=== PATIENT | male | born 1970 | race Caucasian/White ===

== ENCOUNTER 2016-07-25 07:16 | Emergency (ER) | payer OTHER ==
--- NOTE | 2016-07-25 09:07 | DIAGNOSTIC IMAGING REPORT ---
PROCEDURE: XR CHEST 1 VIEW INDICATION: SHORTNESS OF BREATH TECHNIQUE: Portable AP view 08:11 a.m. COMPARISON: None. FINDINGS: Lungs are clear. Cardiac leads project over the chest. Heart and mediastinum are normal. Thorax is normal. IMPRESSION: 1. Negative chest.
--- NOTE | 2016-07-25 11:19 | ED NURSING NOTES ---
Clinical Report - Nurses [facility] [address] [place] [address] 07/25/2016 7:18 Patient: SHAKIRA RIVERA TRIAGE Triage time 07:23. Acuity: LEVEL 3. Chief Complaint: COUGH and WHEEZING (SOB). Alert. No acute distress. SEPSIS SCREEN: Sepsis Screen. Negative (no infection suspected/documented). NENITA COMA SCORE: Nenita Coma Scale: 15- eyes open spontaneously (4); best verbal response- oriented x 4 (5); best motor response- obeys commands (6). --07:30 Candace Banerjee R.N. 07:24 07/25/16. BP: 140/89. HR: 104. RR: 22. O2 saturation: 88%. Temp: 97.6 F. Pain level now: 08/24. --07:30 Candace Banerjee R.N. Weight: 72.5 kg stated. Height/Length: 66 inches Per Patient. BMI: 25.8. --07:25 Candace Banerjee R.N. Medications Blood Pressure Pill. --07:27 Candace Banerjee R.N. Albuterol Sulfate Inhalation. --07:28 Candace Banerjee R.N. Allergies NKDA. --07:27 Candace Banerjee R.N. History Arrived by EMS. Historian: patient. Unaccompanied. Primary physician (Nilda). Onset. (on and off since April. Was instructed to see PCP for SOB but has not been able to be seen yet.). Treatment CHUTE MAN: (see EMS report). Pulse oximeter applied (95). Pre-hospital 12-lead EKG. End-tidal CO2 monitor applied (44). ( Medications given CHUTE MAN: Solu-med. 125mg IVP, Mag 2g IVPB, Ativan 0.5mg IVP.). PAST MEDICAL HX: Immunizations: up-to-date. SOCIAL HX: Smoker- current status unknown. Regular alcohol use; consumes three liquor. No drug use. ABUSE ASSESSMENT: Abuse assessment: The patient was asked "Do you feel safe in your home?" and "Has anyone hurt you or threatened to hurt you?". No report of abuse. SELF HARM ASSESSMENT: A self harm assessment was performed. The patient answered "no" to the question "Do you have thoughts of harming or killing yourself?" and "Have you recently had thoughts about harming or killing others?". NUTRITIONAL RISK ASSESSMENT: The nutritional risk assessment revealed no deficiencies. FUNCTIONAL ASSESSMENT: Functional assessment: no impairments noted. LEARNING NEEDS ASSESSMENT: The learning needs assessment revealed no barriers. --07:30 Candace Banerjee R.N. Treatment CHUTE MAN: (Neb. treatment.). --07:32 Candace Banerjee R.N. PROBLEMS: Hypertension. Cancer. Migraine Headache. --07:28 Candace Banerjee R.N. ADDITIONAL SURGERIES: Hernia Repair. Testicular surgery . --07:28 Candace Banerjee R.N. Interventions ID band on patient. Transported via stretcher. --07:30 Candace Banerjee R.N. 07:30 07/25/2016 Site #1 started prior to arrival by EMS via IV in the left antecubital space with an 18g angiocath, with aseptic technique and good blood return; one attempt. Saline lock flushed with 10 mL saline. --07:30 Candace Banerjee R.N. PHYSICAL ASSESSMENT To room via stretcher. GENERAL / NEURO / PSYCH: Alert. Appears in no acute distress. HEENT: Mucous membranes are pink. RESPIRATORY: Respirations not labored. Cough. CVS: Capillary refill less than 2 seconds. SKIN: Skin is warm and dry. --07:31 Candace Banerjee R.N. NURSING PROGRESS NOTES Patient gowned. Head of bed elevated. Two patient identifiers checked. Call light placed in reach. Side rails up x 2. Bed placed in lowest position. Brakes of bed on. Patient ready for evaluation- chart flagged. --07:31 Candace Banerjee R.N. ( RT notified for eval/treatment.). --07:31 Candace Banerjee R.N. Patient ID band checked for patient name, birthdate and medical record number: patient confirmed. Blood samples drawn from the peripheral IV site by nurse per protocol ; labeled in presence of the patient and sent to lab: rainbow set. Initial blood discarded and additional blood sent to lab. Line flushed with 10 mL normal saline post blood draw. --07:34 Candace Banerjee R.N. 07:45 07/25/2016 Albuterol Neb TX Nebulizer 3 unit dose given. Given by the respiratory therapist. Allergies verified and confirmed 5 rights. Loki Stone --07:55 Loki Stone 08:00 07/25/2016 Albuterol Neb TX Response: no adverse reaction pain is improving. The patient feels better. --08:40 Candace Banerjee R.N. 08:29 07/25/2016 Levofloxacin PO 500 mg given. Allergies verified and confirmed 5 rights. --08:29 Lisandra Bain R.N. 08:30 07/25/2016 Started bag #1 1000 mL IV Fluids IV NS (Saline); at 999 mL/hr over 1 hour(s) via site #1 via IV pump. Allergies verified and confirmed 5 rights. IV patency established. IV site checked: no pain, redness, or swelling. IV flushed thoroughly pre- and post-medication administration. --08:30 Lisandra Bain R.N. 09:22 07/25/2016 Duoneb (Ipratropium-Albuterol) Neb TX 1 unit dose given. Given by the respiratory therapist. Allergies verified and confirmed 5 rights. --09:22 Candace Banerjee R.N. 09:30 07/25/2016 Duoneb Neb TX Response: no adverse reaction pain is improving. The patient feels better. --09:30 Candace Banerjee R.N. 09:31 07/25/2016 IV Fluids IV NS Discontinued: bag #1 infused. Total amount infused: 1000 mL. IV patency established. IV site checked: no pain, redness, or swelling. IV flushed thoroughly. --09:31 Candace Banerjee R.N. 09:35 07/25/16. BP: 108/93. HR: 83. RR: 18. O2 saturation: 97%. --09:36 Candace Banerjee R.N. 11:20 07/25/2016 Site #1 removed upon discharge. Catheter intact. Manual pressure and bandage applied. --15:50 Lisandra Bain R.N. DISPOSITION / DISCHARGE Departure time: 11:20 Jul 25 2016. Condition at departure: improved and stable. No learning barriers present. Discharge instructions provided and reviewed with the patient. Reviewed medication(s) side effects, precautions, dosing and course information. Prescription(s) given to the patient. Patient verbalized understanding. Written instructions provided in Faroese. The patient was discharged by the physician. He was discharged home and accompanied by distribution a class lineman. He left the Emergency Department ambulatory and via private vehicle. Choir Member driving. --15:50 Lisandra Bain R.N. 15:49 07/25/16. BP: deferred. Additional comments: Pt refused saying he needed to go because his ride was waiting. . --15:50 Lisandra Bain R.N. Locked/Released at 07/25/2016 15:51 by Lisandra Bain R.N.
--- NOTE | 2016-07-25 11:19 | ED NURSING NOTES ---
Clinical Report - Nurses [facility] [address] [place] [address] 07/25/2016 7:18 Patient: SHAKIRA RIVERA TRIAGE Triage time 07:23. Acuity: LEVEL 3. Chief Complaint: COUGH and WHEEZING (SOB). Alert. No acute distress. SEPSIS SCREEN: Sepsis Screen. Negative (no infection suspected/documented). NENITA COMA SCORE: Nenita Coma Scale: 15- eyes open spontaneously (4); best verbal response- oriented x 4 (5); best motor response- obeys commands (6). --07:30 Candace Banerjee R.N. 07:24 07/25/16. BP: 140/89. HR: 104. RR: 22. O2 saturation: 88%. Temp: 97.6 F. Pain level now: 08/24. --07:30 Candace Banerjee R.N. Weight: 72.5 kg stated. Height/Length: 66 inches Per Patient. BMI: 25.8. --07:25 Candace Banerjee R.N. Medications Blood Pressure Pill. --07:27 Candace Banerjee R.N. Albuterol Sulfate Inhalation. --07:28 Candace Banerjee R.N. Allergies NKDA. --07:27 Candace Banerjee R.N. History Arrived by EMS. Historian: patient. Unaccompanied. Primary physician (Nilda). Onset. (on and off since April. Was instructed to see PCP for SOB but has not been able to be seen yet.). Treatment RECREATION DIRECTOR: (see EMS report). Pulse oximeter applied (95). Pre-hospital 12-lead EKG. End-tidal CO2 monitor applied (44). ( Medications given RECREATION DIRECTOR: Solu-med. 125mg IVP, Mag 2g IVPB, Ativan 0.5mg IVP.). PAST MEDICAL HX: Immunizations: up-to-date. SOCIAL HX: Smoker- current status unknown. Regular alcohol use; consumes three liquor. No drug use. ABUSE ASSESSMENT: Abuse assessment: The patient was asked "Do you feel safe in your home?" and "Has anyone hurt you or threatened to hurt you?". No report of abuse. SELF HARM ASSESSMENT: A self harm assessment was performed. The patient answered "no" to the question "Do you have thoughts of harming or killing yourself?" and "Have you recently had thoughts about harming or killing others?". NUTRITIONAL RISK ASSESSMENT: The nutritional risk assessment revealed no deficiencies. FUNCTIONAL ASSESSMENT: Functional assessment: no impairments noted. LEARNING NEEDS ASSESSMENT: The learning needs assessment revealed no barriers. --07:30 Candace Banerjee R.N. Treatment RECREATION DIRECTOR: (Neb. treatment.). --07:32 Candace Banerjee R.N. PROBLEMS: Hypertension. Cancer. Migraine Headache. --07:28 Candace Banerjee R.N. ADDITIONAL SURGERIES: Hernia Repair. Testicular surgery . --07:28 Candace Banerjee R.N. Interventions ID band on patient. Transported via stretcher. --07:30 Candace Banerjee R.N. 07:30 07/25/2016 Site #1 started prior to arrival by EMS via IV in the left antecubital space with an 18g angiocath, with aseptic technique and good blood return; one attempt. Saline lock flushed with 10 mL saline. --07:30 Candace Banerjee R.N. PHYSICAL ASSESSMENT To room via stretcher. GENERAL / NEURO / PSYCH: Alert. Appears in no acute distress. HEENT: Mucous membranes are pink. RESPIRATORY: Respirations not labored. Cough. CVS: Capillary refill less than 2 seconds. SKIN: Skin is warm and dry. --07:31 Candace Banerjee R.N. NURSING PROGRESS NOTES Patient gowned. Head of bed elevated. Two patient identifiers checked. Call light placed in reach. Side rails up x 2. Bed placed in lowest position. Brakes of bed on. Patient ready for evaluation- chart flagged. --07:31 Candace Banerjee R.N. ( RT notified for eval/treatment.). --07:31 Candace Banerjee R.N. Patient ID band checked for patient name, birthdate and medical record number: patient confirmed. Blood samples drawn from the peripheral IV site by nurse per protocol ; labeled in presence of the patient and sent to lab: rainbow set. Initial blood discarded and additional blood sent to lab. Line flushed with 10 mL normal saline post blood draw. --07:34 Candace Banerjee R.N. 07:45 07/25/2016 Albuterol Neb TX Nebulizer 3 unit dose given. Given by the respiratory therapist. Allergies verified and confirmed 5 rights. Loki Stone --07:55 Loki Stone 08:00 07/25/2016 Albuterol Neb TX Response: no adverse reaction pain is improving. The patient feels better. --08:40 Candace Baenrjee R.N. 08:29 07/25/2016 Levofloxacin PO 500 mg given. Allergies verified and confirmed 5 rights. --08:29 Lisandra Bain R.N. 08:30 07/25/2016 Started bag #1 1000 mL IV Fluids IV NS (Saline); at 999 mL/hr over 1 hour(s) via site #1 via IV pump. Allergies verified and confirmed 5 rights. IV patency established. IV site checked: no pain, redness, or swelling. IV flushed thoroughly pre- and post-medication administration. --08:30 Lisandra Bain R.N. 09:22 07/25/2016 Duoneb (Ipratropium-Albuterol) Neb TX 1 unit dose given. Given by the respiratory therapist. Allergies verified and confirmed 5 rights. --09:22 Candace Banerjee R.N. 09:30 07/25/2016 Duoneb Neb TX Response: no adverse reaction pain is improving. The patient feels better. --09:30 Candace Banerjee R.N. 09:31 07/25/2016 IV Fluids IV NS Discontinued: bag #1 infused. Total amount infused: 1000 mL. IV patency established. IV site checked: no pain, redness, or swelling. IV flushed thoroughly. --09:31 Candace Banerjee R.N. 09:35 07/25/16. BP: 108/93. HR: 83. RR: 18. O2 saturation: 97%. --09:36 Candace Banerjee R.N. 11:20 07/25/2016 Site #1 removed upon discharge. Catheter intact. Manual pressure and bandage applied. --15:50 Lisandra Bain R.N. DISPOSITION / DISCHARGE Departure time: 11:20 Jul 25 2016. Condition at departure: improved and stable. No learning barriers present. Discharge instructions provided and reviewed with the patient. Reviewed medication(s) side effects, precautions, dosing and course information. Prescription(s) given to the patient. Patient verbalized understanding. Written instructions provided in Maori. The patient was discharged by the physician. He was discharged home and accompanied by supervisor of officials. He left the Emergency Department ambulatory and via private vehicle. Sheet Tailer driving. --15:50 Lisandra Bain R.N. 15:49 07/25/16. BP: deferred. Additional comments: Pt refused saying he needed to go because his ride was waiting. . --15:50 Lisandra Bain R.N. Locked/Released at 07/25/2016 15:51 by Lisandra Bain R.N.
--- NOTE | 2016-07-25 11:19 | ED CLINICAL REPORT ---
Clinical Report - Physicians/Mid Levels [facility] [address] [place] [address] 07/25/2016 7:18 Patient: SHAKIRA RIVERA Time Seen: 07:27; initial patient contact. Arrived- By ambulance. Historian- patient. CPT: ER phys charges level 5 (#[id number]). HISTORY OF PRESENT ILLNESS Chief Complaint: DYSPNEA. This started about 3 months ago and is still present and worsening. (since 2 days ago). It was gradual in onset and has been intermittent. The dyspnea is described as moderate. He has not had worsening of dyspnea with coughing. No improvement of dyspnea with rest or sitting upright. The patient has had a cough and wheezing. No sputum production, fever, sweating episodes or chills. No chest pain or discomfort, calf pain, foot swelling or palpitations. Similar symptoms previously: Several times. Recent medical care: Not recently seen/assessed. REVIEW OF SYSTEMS No nasal discharge, sinus drainage, nausea or vomiting. All systems otherwise negative, except as recorded above. PAST HISTORY Hypertension. Cancer. Migraine Headache. ADDITIONAL SURGERIES: Hernia Repair. Testicular surgery . Medications: Albuterol Sulfate Inhalation. Blood Pressure Pill. Allergies: NKDA. SOCIAL HISTORY Former smoker. Regular alcohol use. No drug use. ADDITIONAL NOTES The nursing notes have been reviewed with agreement regarding the chief complaint, PMH and patient medications and allergies. PHYSICAL EXAM Vital Signs: 07/25/2016 07:24 BP: 140/89. HR: 104. RR: 22. O2 saturation: 88%. Temp: 97.6 F. Pain level now: 08/24. Have been reviewed. Hypertensive. Tachycardic. Tachypneic. Temperature normal. Oxygen saturation low. Appearance: Alert. Patient in mild distress. Eyes: Eyes normal inspection. ENT: Dry mucous membranes present. Neck: No jugular venous distention. CVS: Tachycardia. Heart sounds normal. Rhythm normal. Respiratory: Mild respiratory distress with accessory muscle use, retractions and tachypnea. Mildly prolonged expirations. Mildly decreased air movement diffusely over both lungs. Expiratory moderate bilateral wheezes diffusely. No rales or rhonchi. Abdomen: Nontender. Skin: Skin warm and dry. Normal skin color. No rash. Extremities: No calf tenderness. No lower extremity edema. Neuro: Oriented X 3. LABS, X-RAYS, AND EKG Chest X-ray: Patchy infiltrate in the right lower lobe. Views: AP. The X-rays were independently viewed by me and interpreted contemporaneously by me. Prior films were not available for comparison. Interpretation time: 08:49. Laboratory Tests: CBC w Diff: (LYRIC: 07/25/2016 07:35) ( Mscvd 07/25/2016 07:43) Final results Test Result Flag Units (Reference) WHITE BLOOD COUNT 10.3 K/uL (4.5-11.5) RED BLOOD COUNT 4.61 M/uL (4.50-5.90) HEMOGLOBIN 14.9 gm/dL (13.5-17.5) HEMATOCRIT 44.2 % (41.0-53.0) MEAN CELL VOLUME 96 fL (80-100) MEAN CORPUSCULAR HGB 32 pg (26-34) MEAN CORPUSCULAR HGB CONC 34 g/dL (31-37) RED CELL DISTRIBUTION WIDTH 13.2 % (11.6-14.8) PLATELET COUNT 269 K/uL (150-400) NEUTROPHIL % 50.8 % (50-75) LYMPH % 21.7 L % (25-40) MONO % 7.8 % (3-14) EOSINOPHIL % 19.1 H % (0-4) BASOPHIL % 0.6 % (0-2) CMP: (LYRIC: 07/25/2016 07:35) ( MsgRcvd 07/25/2016 08:08) Final results Test Result Flag Units (Reference) GLUCOSE 186 H mg/dL (70-110) BUN 22 H mg/dL (7-18) CREATININE 1.2 mg/dL (0.6-1.3) Estimated GFR >60 mL/min Estimated GFR- >60 mL/min Note: Persistent reduction over 3 months in eGFR<60 mL/min/1.73 m2 defines CKD. Patients with eGFR values>=60 mL/min/1.73 m2 may also have CKD if evidence ofpersistent proteinuria. Additional information may be foundat www.kidney.org. SODIUM 141 mmol/L (136-145) POTASSIUM 3.6 mmol/L (3.5-5.1) CHLORIDE 105 mmol/L (98-107) CARBON DIOXIDE 29 mmol/L (21-32) CALCIUM 8.5 mg/dL (8.5-10.1) TOTAL PROTEIN 7.0 g/dL (6.4-8.2) ALBUMIN 3.6 g/dL (3.3-5.0) BILIRUBIN, TOTAL 0.6 mg/dL (0.0-1.0) ALKALINE PHOSPHATASE 84 U/L (46-116) AST (SGOT) 20 U/L (15-37) ALT (SGPT) 28 U/L (12-78) . PROGRESS AND PROCEDURES Course of Care: Solumedrol 125 mg by medics with albuterol HHN 09:28 07/25/16. Pt w/ worsening of wheezing and air movement. Duoneb ordered and case signed out to Dr. King. 11:20 07/25/16. Much better. Sat 97 %. Pt says he has gone from a 10/10 to a 2 /10. Ready to go home. Walks around the ER wcith no distress. Patient/family counseled. Disposition: Discharged. Condition: stable and improved. CLINICAL IMPRESSION Acute exacerbation of COPD (emphysematous, asthmatic) (with hypoxia). INSTRUCTIONS No strenuous activity. Rest. Drink plenty of fluids. Avoid tobacco smoke. Do not smoke. Warnings: Further evaluation is necessary. GENERAL WARNINGS: Return or contact your physician immediately if your condition worsens or changes unexpectedly, if not improving as expected, or if other problems arise. Your Current Medications: CONTINUE TAKING THE FOLLOWING MEDICATIONS: Albuterol Sulfate Inhalation. Blood Pressure Pill*. Prescription Medications: Albuterol HFA oral inhaler: inhale 2 puffs every 4 hours as needed for wheezing or difficulty breathing, until symptoms improve. Dispense one (1) unit. No refill. Prednisone 20 mg: take 3 orally every day for 5 days. Dispense fifteen (15). No refills. Levaquin 500 mg: take 1 tab orally every day for 7 days. No refills. Follow-up: Follow up with your doctor in three days. Call for an appointment. Understanding of the discharge instructions verbalized by patient. (Electronically signed by Gordon King MD 07/27/2016 10:45)
--- NOTE | 2016-07-25 11:20 | ED ORDER SUMMARY ---
..... Patient: SHAKIRA RIVERA OrderSheet [facility] VisitID: [id number] [place] [address] 46y, M Registration Date/Time: 07/25/2016 ORDER SHEET Weight: 72.5 kg (stated) Allergies: NKDA GENERAL ORDERS: Chest 1V Urgent (07:27 07/25/2016 Juancarlos Vitale) (Ack 7:46 LTapper) (8:29 MWinterer R.N.) CBC w Diff Urgent (07:28 07/25/2016 Juancarlos Vitale) (7:45 LTapper) CMP Urgent (07:07/25/2016 Juancarlos Vitale) (7:45 LTapper) MEDICATION ORDERS: Albuterol Neb Tx 10 mg (continuous) (07:28 07/25/2016 Juancarlos Vitale) (7:55 JZiglar) Levofloxacin PO 500 mg (NOW) (08:21 07/25/2016 Juancarlos Vitale) (Ack 8:23 MWinterer R.N.) (8:29 MWinterer R.N.) DuoNeb Neb Tx 1 unit dose (NOW) (09:13 07/25/2016 Juancarlos Vitale) (9:22 Delvisitz R.N.) IV FLUIDS: IV NS : initial bolus none -, then 1000 mL/hr for X1 (NOW) (08:20 07/25/2016 Juancarlos Vitale) (Ack 8:23 MWinterer R.N.) (8:30 MWinterer R.N.) ORDER SHEET NOTES: [Electronically signed by Lisandra Bain R.N. (15:51 07/25/2016)] [Electronically signed by Gordon King MD (10:45 07/27/2016)] [Electronically locked/signed by Lisandra Bain R.N. (15:51 07/25/2016)]
--- NOTE | 2016-07-25 11:20 | ED ORDER SUMMARY ---
..... Patient: SHAKIRA RIVERA OrderSheet [facility] VisitID: [id number] [place] [address] 46y, M Registration Date/Time: 07/25/2016 ORDER SHEET Weight: 72.5 kg (stated) Allergies: NKDA GENERAL ORDERS: Chest 1V Urgent (07:27 07/25/2016 Juancarlos Vitale) (Ack 7:46 LTapper) (8:29 MWinterer R.N.) CBC w Diff Urgent (07:28 07/25/2016 Juancarlos Vitale) (7:45 LTapper) CMP Urgent (07:07/25/2016 Juancarlos Vitale) (7:45 LTapper) MEDICATION ORDERS: Albuterol Neb Tx 10 mg (continuous) (07:28 07/25/2016 Juancarlos Vitale) (7:55 JZiglar) Levofloxacin PO 500 mg (NOW) (08:21 07/25/2016 Juancarlos Vitale) (Ack 8:23 MWinterer R.N.) (8:29 MWinterer R.N.) DuoNeb Neb Tx 1 unit dose (NOW) (09:13 07/25/2016 Juancarlos Vitale) (9:22 Delvisitz R.N.) IV FLUIDS: IV NS : initial bolus none -, then 1000 mL/hr for X1 (NOW) (08:20 07/25/2016 Juancarlos Vitale) (Ack 8:23 MWinterer R.N.) (8:30 MWinterer R.N.) ORDER SHEET NOTES: [Electronically signed by Lisandra Bain R.N. (15:51 07/25/2016)] [Electronically signed by Gordon King MD (10:45 07/27/2016)] [Electronically locked/signed by Lisandra Bain R.N. (15:51 07/25/2016)]
--- NOTE | 2016-07-27 10:46 | ED MAR SUMMARY ---
..... Medication Administration Record [facility] [address] [place] [address] Patient: SHAKIRA RIVERA Visit ID: [id number] 46y, M Weight: 72.5 kg Height/Length: 66 in BMI: 25.8 ALLERGIES: NKDA Given 07:45 07/25/2016 Loki Stone, Medication Administered: ALBUTEROL [NEB TX], Dose: 3 unit dose Nebulizer Neb TX. Medication Ordered: Albuterol Neb Tx 10 mg (continuous). Given 08:29 07/25/2016 Lisandra Bain R.N. Medication Administered: LEVOFLOXACIN [PO], Dose: 500 mg PO. Medication Ordered: Levofloxacin PO 500 mg (NOW). Start 08:30 07/25/2016 Lisandra Bain R.N., Stop 09:31 07/25/2016 Candace Banerjee R.N. Medication Administered: IV NS (SALINE), Dose: IV Fluids over 1 hour(s), Rate: 999 mL/hr, Dispensed: 1000 mL bag, Site: #1 left . Medication Ordered: IV NS : initial bolus none -, then 1000 mL/hr for X1 (NOW). Given 09:22 07/25/2016 Candace Banerjee R.N. Medication Administered: DUONEB [NEB TX] (IPRATROPIUM-ALBUTEROL), Dose: 1 unit dose Neb TX. Medication Ordered: DuoNeb Neb Tx 1 unit dose (NOW).
--- NOTE | 2016-07-27 10:46 | ED MED RECONCILIATION SUMMARY ---
Patient: SHAKIRA RIVERA Medication Reconciliation Report [facility] VisitID: [id number] [address] [place] [address] 46y, M Registration Date/Time: 07/25/2016 Weight: 72.5 kg Height/Length: 66 in. BMI: 25.8 ALLERGIES: NKDA The patient's Home Medications are listed below: CONTINUE TAKING THE FOLLOWING MEDICATIONS: Albuterol Sulfate Inhalation Blood Pressure Pill The source(s) of the original Home Medication information: Not obtained. The following Medications were given to the patient in the Emergency Department: Albuterol [Neb Tx] Neb TX 3 unit dose, administered: 07/25/2016 7:45:00 AM Levofloxacin [PO] PO 500 mg, administered: 07/25/2016 8:29:00 AM IV NS IV Fluids bolus 0, then 999 mL/hr, administered: 07/25/2016 8:30:00 AM Duoneb [Neb Tx] Neb TX 1 unit dose, administered: 07/25/2016 9:22:00 AM The following Medications were prescribed to the patient: Albuterol HFA oral inhaler: inhale 2 puffs every 4 hours as needed for wheezing or difficulty breathing, until symptoms improve. Dispense one (1) unit. No refill. -- Gordon King MD Prednisone 20 mg: take 3 orally every day for 5 days. Dispense fifteen (15). No refills. -- Gordon King MD Levaquin 500 mg: take 1 tab orally every day for 7 days. No refills. -- Gordon King MD
--- NOTE | 2016-07-27 10:46 | ED MAR SUMMARY ---
..... Medication Administration Record [facility] [address] [place] [address] Patient: SHAKIRA RIVERA Visit ID: [id number] 46y, M Weight: 72.5 kg Height/Length: 66 in BMI: 25.8 ALLERGIES: NKDA Given 07:45 07/25/2016 Loki Stone, Medication Administered: ALBUTEROL [NEB TX], Dose: 3 unit dose Nebulizer Neb TX. Medication Ordered: Albuterol Neb Tx 10 mg (continuous). Given 08:29 07/25/2016 Lisandra Bain R.N. Medication Administered: LEVOFLOXACIN [PO], Dose: 500 mg PO. Medication Ordered: Levofloxacin PO 500 mg (NOW). Start 08:30 07/25/2016 Lisandra Bain R.N., Stop 09:31 07/25/2016 Candace Banerjee R.N. Medication Administered: IV NS (SALINE), Dose: IV Fluids over 1 hour(s), Rate: 999 mL/hr, Dispensed: 1000 mL bag, Site: #1 left . Medication Ordered: IV NS : initial bolus none -, then 1000 mL/hr for X1 (NOW). Given 09:22 07/25/2016 Candace Banerjee R.N. Medication Administered: DUONEB [NEB TX] (IPRATROPIUM-ALBUTEROL), Dose: 1 unit dose Neb TX. Medication Ordered: DuoNeb Neb Tx 1 unit dose (NOW).
--- NOTE | 2016-07-27 10:46 | ED MED RECONCILIATION SUMMARY ---
Patient: SHAKIRA RIVERA Medication Reconciliation Report [facility] VisitID: [id number] [address] [place] [address] 46y, M Registration Date/Time: 07/25/2016 Weight: 72.5 kg Height/Length: 66 in. BMI: 25.8 ALLERGIES: NKDA The patient's Home Medications are listed below: CONTINUE TAKING THE FOLLOWING MEDICATIONS: Albuterol Sulfate Inhalation Blood Pressure Pill The source(s) of the original Home Medication information: Not obtained. The following Medications were given to the patient in the Emergency Department: Albuterol [Neb Tx] Neb TX 3 unit dose, administered: 07/25/2016 7:45:00 AM Levofloxacin [PO] PO 500 mg, administered: 07/25/2016 8:29:00 AM IV NS IV Fluids bolus 0, then 999 mL/hr, administered: 07/25/2016 8:30:00 AM Duoneb [Neb Tx] Neb TX 1 unit dose, administered: 07/25/2016 9:22:00 AM The following Medications were prescribed to the patient: Albuterol HFA oral inhaler: inhale 2 puffs every 4 hours as needed for wheezing or difficulty breathing, until symptoms improve. Dispense one (1) unit. No refill. -- Gordon King MD Prednisone 20 mg: take 3 orally every day for 5 days. Dispense fifteen (15). No refills. -- Gordon King MD Levaquin 500 mg: take 1 tab orally every day for 7 days. No refills. -- Gordon King MD
--- NOTE | 2016-07-27 10:46 | ED DISCHARGE INSTRUCTIONS ---
Patient: SHAKIRA RIVERA General Instructions [facility] VisitID: [id number] [place] [address] 46y, M Registration Date/Time: 07/25/2016 Acute exacerbation of COPD (emphysematous, asthmatic) (with hypoxia). INSTRUCTIONS No strenuous activity. Rest. Drink plenty of fluids. Avoid tobacco smoke. Do not smoke. Warnings: Further evaluation is necessary. GENERAL WARNINGS: Return or contact your physician immediately if your condition worsens or changes unexpectedly, if not improving as expected, or if other problems arise. Your Current Medications: CONTINUE TAKING THE FOLLOWING MEDICATIONS: Albuterol Sulfate Inhalation. Blood Pressure Pill*. Prescription Medications: Albuterol HFA oral inhaler: inhale 2 puffs every 4 hours as needed for wheezing or difficulty breathing, until symptoms improve. Dispense one (1) unit. No refill. Prednisone 20 mg: take 3 orally every day for 5 days. Dispense fifteen (15). No refills. Levaquin 500 mg: take 1 tab orally every day for 7 days. No refills. Follow-up: Follow up with your doctor in three days. Call for an appointment. Understanding of the discharge instructions verbalized by patient. ADDITIONAL INFORMATION COPD Flare Both emphysema and chronic bronchitis are forms of chronic obstructive pulmonary disease (COPD). It is most often caused by many years of smoking tobacco. Many things can make your lung disease suddenly get worse. These causes include the common cold, pneumonia, acute bronchitis, missing doses of your regular breathing medicines, or being around smoke, dust, or other air pollutants. A COPD flare may last 7 to 14 days. Your doctor may prescribe medicineto relax your airways and prevent wheezing. Your doctor may also prescribe antibiotics if he or she thinks you havea bacterial infection. Prednisone can helpease inflammation in a severe attack. Home care Here are things you can do at home: Drink lots of water or other fluids (at least 10 glasses a day) during an attack. This will loosen lung secretions and make it easier to breathe. If you have heart or kidney disease, check with your doctor before you drink extra amounts of fluids. Take prescribed medicine exactly at the times advised. If you have a hand-held inhaler or aerosol breathing medicine, don't use it more than once every 4 hours, unless your doctor tells you to. If you were givenan antibiotic or prednisone, take all of the medicine even if you are feeling better after a few days. Don't smoke. Avoid being aroundthe smoke of others. If you were given an inhaler, use it exactly as directed. If you need to use it more often than prescribed, your condition may be getting worse. Call your doctor. Follow-up care Follow up with your health care provider.If you are 65 or older or have chronic asthma or COPD, you should get a single dose of the pneumococcal vaccine and aflu shot each year. You may need a second dose of the pneumococcal vaccine if you had the first dose at a younger age. Your health care provider will let you know if you need a second dose. For all other people, the usual dose for the pneumococcal vaccine is 1 or 2 shots. Yourprovider can discuss this with you. When to seek medical care Get prompt medical attention ifany of these occur: Increased wheezing or shortness of breath Need to use your inhalers more often than usual without relief Fever of 100.4F(38C) or higher, or as directed by your health care provider Coughing up lots of dark-colored or bloody sputum (mucus) Chest pain with each breath You do not start to improve within 24 hours Albuterol Sulfate Pressurized inhalation, suspension What is this medicine? ALBUTEROL (al BYOO ter ole) is a bronchodilator. It helps open up the airways in your lungs to make it easier to breathe. This medicine is used to treat and to prevent bronchospasm. How should I use this medicine? This medicine is for inhalation through the mouth. Follow the directions on your prescription label. Take your medicine at regular intervals. Do not use more often than directed. Make sure that you are using your inhaler correctly. Ask you doctor or health care provider if you have any questions. Talk to your sweatband flanger regarding the use of this medicine in children. Special care may be needed. What side effects may I notice from receiving this medicine? Side effects that you should report to your doctor or health insurance healthcare representative as soon as possible: allergic reactions like skin rash, itching or hives, swelling of the face, lips, or tongue breathing problems chest pain feeling faint or lightheaded, falls high blood pressure irregular heartbeat fever muscle cramps or weakness pain, tingling, numbness in the hands or feet vomiting Side effects that usually do not require medical attention (report to your doctor or health insurance healthcare representative if they continue or are bothersome): cough difficulty sleeping headache nervousness or trembling stomach upset stuffy or runny nose throat irritation unusual taste What may interact with this medicine? anti-infectives like chloroquine and pentamidine caffeine cisapride diuretics medicines for colds medicines for depression or for emotional or psychotic conditions medicines for weight loss including some herbal products methadone some antibiotics like clarithromycin, erythromycin, levofloxacin, and linezolid some heart medicines steroid hormones like dexamethasone, cortisone, hydrocortisone theophylline thyroid hormones What if I miss a dose? If you miss a dose, use it as soon as you can. If it is almost time for your next dose, use only that dose. Do not use double or extra doses. Where should I keep my medicine? Keep out of the reach of children. Store at room temperature between 15 and 30 degrees C (59 and 86 degrees F). The contents are under pressure and may burst when exposed to heat or flame. Do not freeze. This medicine does not work as well if it is too cold. Throw away any unused medicine after the expiration date. Inhalers need to be thrown away after the labeled number of puffs have been used or by the expiration date; whichever comes first. Ventolin HFA should be thrown away 12 months after removing from foil pouch. Check the instructions that come with your medicine. What should I tell my health care provider before I take this medicine? They need to know if you have any of the following conditions: diabetes heart disease or irregular heartbeat high blood pressure pheochromocytoma seizures thyroid disease an unusual or allergic reaction to albuterol, levalbuterol, sulfites, other medicines, foods, dyes, or preservatives or trying to get breast-feeding What should I watch for while using this medicine? Tell your doctor or health insurance healthcare representative if your symptoms do not improve. Do not use extra albuterol. If your asthma or bronchitis gets worse while you are using this medicine, call your doctor right away. If your mouth gets dry try chewing sugarless gum or sucking hard candy. Drink water as directed. Levofloxacin Oral tablet What is this medicine? LEVOFLOXACIN (melanie addison) is a quinolone antibiotic. It is used to treat certain kinds of bacterial infections. It will not work for colds, flu, or other viral infections. How should I use this medicine? Take this medicine by mouth with a full glass of water. Follow the directions on the prescription label. This medicine can be taken with or without food. Take your medicine at regular intervals. Do not take your medicine more often than directed. Do not skip doses or stop your medicine early even if you feel better. Do not stop taking except on your doctor's advice. A special MedGuide will be given to you by the pharmacist with each prescription and refill. Be sure to read this information carefully each time. Talk to your sweatband flanger regarding the use of this medicine in children. While this drug may be prescribed for children as young as 6 months for selected conditions, precautions do apply. What side effects may I notice from receiving this medicine? Side effects that you should report to your doctor or health insurance healthcare representative as soon as possible: -allergic reactions like skin rash or hives, swelling of the face, lips, or tongue -changes in vision -confusion, nightmares or hallucinations -difficulty breathing -irregular heartbeat, chest pain -joint, muscle or tendon pain -pain or difficulty passing urine -persistent headache with or without blurred vision -redness, blistering, peeling or loosening of the skin, including inside the mouth -seizures -unusual pain, numbness, tingling, or weakness -vaginal irritation, discharge Side effects that usually do not require medical attention (report to your doctor or health insurance healthcare representative if they continue or are bothersome): -diarrhea -dry mouth -headache -stomach upset, nausea -trouble sleeping What may interact with this medicine? Do not take this medicine with any of the following medications: - arsenic trioxide - chloroquine - droperidol - medicines for irregular heart rhythm like amiodarone, disopyramide, dofetilide, flecainide, quinidine, procainamide, sotalol - some medicines for depression or mental problems like phenothiazines, pimozide, and ziprasidone This medicine may also interact with the following medications: - amoxapine -antacids - cisapride - dairy products - didanosine (ddI) buffered tablets or powder - haloperidol - multivitamins -NSAIDS, medicines for pain and inflammation, like ibuprofen or naproxen - retinoid products like tretinoin or isotretinoin - risperidone - some other antibiotics like clarithromycin or erythromycin - sucralfate - theophylline - warfarin What if I miss a dose? If you miss a dose, take it as soon as you remember. If it is almost time for your next dose, take only that dose. Do not take double or extra doses. Where should I keep my medicine? Keep out of the reach of children. Store at room temperature between 15 and 30 degrees C (59 and 86 degrees F). Keep in a tightly closed container. Throw away any unused medicine after the expiration date. What should I tell my health care provider before I take this medicine? They need to know if you have any of these conditions: cerebral disease irregular heartbeat kidney disease seizure disorder an unusual or allergic reaction to levofloxacin, other antibiotics or medicines, foods, dyes, or preservatives or trying to get breast-feeding What should I watch for while using this medicine? Tell your doctor or health insurance healthcare representative if your symptoms do not improve or if they get worse. Drink several glasses of water a day and cut down on drinks that contain caffeine. You must not get dehydrated while taking this medicine. You may get drowsy or dizzy. Do not drive, use machinery, or do anything that needs mental alertness until you know how this medicine affects you. Do not sit or stand up quickly, especially if you are an older patient. This reduces the risk of dizzy or fainting spells. This medicine can make you more sensitive to the sun. Keep out of the sun. If you cannot avoid being in the sun, wear protective clothing and use a sunscreen. Do not use sun lamps or tanning beds/booths. Contact your doctor if you get a sunburn. If you are a diabetic monitor your blood glucose carefully. If you get an unusual reading stop taking this medicine and call your doctor right away. Do not treat diarrhea with [id number] products. Contact your doctor if you have diarrhea that lasts more than 2 days or if the diarrhea is severe and watery. Avoid antacids, calcium, iron, and zinc products for 2 hours before and 2 hours after taking a dose of this medicine. You have been given the following additional information: COPD Flare Albuterol Sulfate Pressurized inhalation, suspension Levofloxacin Oral tablet No strenuous activity. Rest. (Electronically signed by Gordon King MD 07/27/2016 10:45)
== END 2016-07-25 11:20 | disposition home or self-care (01) ==
LOC: ED SRH 07:16
DX: J44.1 Chronic obstructive pulmonary disease with (acute) exacerbation (principal); R09.02 Hypoxemia; I10 Essential (primary) hypertension
CPT/HCPCS: 90100; 95059

== ENCOUNTER 2016-08-11 21:50 | Inpatient (IN) | payer OTHER ==
[~2016-08-11] VITALS: Ht 170.2 cm; Wt 67.3 kg
--- NOTE | 2016-08-11 23:17 | DIAGNOSTIC IMAGING REPORT ---
PROCEDURE: XR CHEST 1 VIEW INDICATION: SHORTNESS OF BREATH TECHNIQUE: Portable AP view (2220 hours). COMPARISON: Compared to chest x-ray on 07/25/2016. FINDINGS: Allowing for suboptimal inspiration, and overlying wires and electrodes, lungs are clear. Heart and mediastinum are normal. Thorax is normal. IMPRESSION: 1. Negative chest.
--- NOTE | 2016-08-11 23:22 | ED ORDER SUMMARY ---
..... Patient: SHAKIRA RIVERA OrderSheet [facility] VisitID: [id number] [place] [address] 46y, M Registration Date/Time: 08/11/2016 ORDER SHEET Weight: 68.9 kg (measured) Allergies: NKDA GENERAL ORDERS: Chest 1V Urgent (21:58 [facility] (Ack 22:01 AMcQuoid ER Tech1) (22:24 MCampbell) Signal Tester (Continuous) (:58 [facility]2016 [facility] (Ack 22:01 AMcQuoid ER Tech1) (22:03 TBowen R.N.) UA-Culture if indicated Urgent (:08/11/2016 [facility] (Ack 22:01 AMcQuoid ER Tech1) (0:23 JRomanelli R.N.) Cardiac Panel Stat (:08/11/2016 [facility] (Ack 22:01 AMcQuoid ER Tech1) (22:18 JRomanelli R.N.) BNP Urgent (:59 [facility] (Ack 22:01 AMcQuoid ER Tech1) (22:18 JRomanelli R.N.) Amylase Urgent (:59 [facility] (Ack 22:01 AMcQuoid ER Tech1) (22:18 JRomanelli R.N.) Oxygen (2 L/min) (NC) (:08/11/2016 [facility] (Ack 22:01 AMcQuoid ER Tech1) (22:03 TBowen R.N.) (Cancelled: Other22:39 JRomanelli R.N.) Pulse oximeter (:08/11/2016 [facility] (Ack 22:01 AMcQuoid ER Tech1) (22:03 TBowen R.N.) EKG - ER Stat (:08/11/2016 [facility] (Ack 22:01 AMcQuoid ER Tech1) (22:30 JRomanelli R.N.) Vitals (:59 08/11/2016 [facility]) (Ack 22:01 AMcQuoid ER Tech1) (22:39 JRomanelli R.N.) ABG (G) Urgent (22:07 08/11/2016 [facility]) (Ack 22:13 AMcQuoid ER Tech1) (22:18 JRomanelli R.N.) MEDICATION ORDERS: Albuterol Neb Tx continuous (NOW, HHN) (21:59 08/11/2016 [facility]) (22:38 omanelli R.N.) IV FLUIDS: IV NS : initial bolus 1000 mL (1000 mL/hr), then 500 mL/hr for X2 (NOW) (21:58 08/11/2016 [facility]) (22:18 omanjohnathan R.N.) Zofran IV 4 mg (NOW) (21:58 08/11/2016 [facility]) (22:30 omanjohnathan R.N.) ORDER SHEET NOTES: [Electronically signed by Red Cuba DO (00:31 08/12/2016)] [Electronically signed by Ambrose Mcrae R.N. (01:05 08/12/2016)] [Electronically locked/signed by Ambrose Mcrae R.N. (01:08/12/2016)]
--- NOTE | 2016-08-11 23:22 | ED CLINICAL REPORT ---
Clinical Report - Physicians/Mid Levels [facility] [address] [place] [address] 08/11/2016 21:49 Patient: SHAKIRA RIVERA Time Seen: 21:52. Arrived- By ambulance. Historian- patient and EMS personnel. HISTORY OF PRESENT ILLNESS Chief Complaint: DYSPNEA, WHEEZING and HISTORY OF ASTHMA. This started today and is still present. It was gradual in onset and has been constant. The dyspnea is described as severe. He has had dyspnea at rest. The patient has had sputum production and a cough. He has had generalized chest tightness. See nurses notes for current asthma threapy. Asthma triggers: unknown. Takes asthma medications. Similar symptoms previously: Recent medical care: The patient was seen recently at this facility in the emergency department. Seen for similar symptoms. Diagnosis: asthma and COPD exacerbation. REVIEW OF SYSTEMS No nasal discharge, sinus drainage, fever, chills or headache. No palpitations, calf pain, nausea, abdominal pain or diarrhea. No black stools, difficulty with urination, excessive urination, skin rash or vomiting. No bloody stools. All systems otherwise negative, except as recorded above. PAST HISTORY Primary physician: Dr Munguia Hypertension. Testicular Cancer. Migraine Headache. COPD / Asthma SURGERIES: Hernia Repair. Testicular surgery. No history of congestive heart failure, deep venous thrombosis or pulmonary embolism. Medications: Albuterol Sulfate Inhalation, PRN. Blood Pressure Pill. Allergies: NKDA. SOCIAL HISTORY Former smoker, end date 2015. ADDITIONAL NOTES The nursing notes have been reviewed. PHYSICAL EXAM Vital Signs: 08/11/2016 21:52 BP: 172/101. HR: 145. RR: 18. O2 saturation: 95%. Temp: 97.9 F. Appearance: Lethargic. Patient in moderate distress. Distress appears respiratory. Eyes: Eyes normal inspection. No scleral icterus or pale conjunctivae. ENT: Pharynx normal. Uvula midline. Neck: Normal inspection. Neck supple. No JVD. CVS: Tachycardia. Heart sounds normal. Pulses normal. Respiratory: Moderate respiratory distress with accessory muscle use, tachypnea and decreased mental status. Accessory muscle use. Prolonged expirations. Severely decreased air movement bilaterally. Expiratory mild bilateral wheezes present. Breath sounds normal. Abdomen: Soft and nontender. No organomegaly. Back: Normal inspection. Skin: Skin warm and dry. Normal skin color. Normal skin turgor. Extremities: Extremities exhibit normal ROM. No calf tenderness. No lower extremity edema. Neuro: Oriented X 3. No motor deficit. LABS, X-RAYS, AND EKG EKG: EKG time: (22:26). Narrow-complex tachycardia (ventricular rate 130). Sinus tachycardia. Normal P waves. Normal MARY. Normal QRS complex. Normal axis. Normal ST and T waves. The study has been interpreted contemporaneously by me. The EKG appears to be a good tracing. Rhythm Strip #1: Sinus tachycardia (ventricular rate 140). Chest X-ray: Hyperinflation present. Normal lung markings present. Normal heart size. Mediastinum normal. Great vessels normal. No infiltrate. Views: AP (portable). Technique: good. The X-rays were interpreted contemporaneously by me. A comparison with prior films reveals that the findings are unchanged. Laboratory Tests: UA-Culture if indicated: (LYRIC: 08/11/2016 00:15) ( [facility] 08/12/2016 00:26) IP Test Result Flag Units (Reference) URINE COLOR YELLOW URINE APPEARANCE CLEAR URINE GLUCOSE 2+ (NEGATIVE) URINE BILIRUBIN NEGATIVE (NEGATIVE) URINE KETONE NEGATIVE (NEGATIVE) URINE SPECIFIC GRAVITY >= 1.030 (1.010-1.030) URINE PH 5.5 (5.0-8.0) URINE PROTEIN NEGATIVE (NEGATIVE) URINE UROBILINOGEN 0.2 EU/dL (0.2-1.0) URINE NITRITE NEGATIVE (NEGATIVE) URINE BLOOD NEGATIVE (NEGATIVE) URINE LEUK ESTERASE NEGATIVE (NEGATIVE) CBC w Diff: (LYRIC: 08/11/2016 22:00) ( [facility] 08/11/2016 22:24) Final results Test Result Flag Units (Reference) WHITE BLOOD COUNT 22.1 H K/uL (4.5-11.5) RED BLOOD COUNT 4.93 M/uL (4.50-5.90) HEMOGLOBIN 16.0 gm/dL (13.5-17.5) HEMATOCRIT 47.0 % (41.0-53.0) MEAN CELL VOLUME 95 fL (80-100) MEAN CORPUSCULAR HGB 32 pg (26-34) MEAN CORPUSCULAR HGB CONC 34 g/dL (31-37) RED CELL DISTRIBUTION WIDTH 12.7 % (11.6-14.8) PLATELET COUNT 311 K/uL (150-400) NEUTROPHIL % 71.0 % (50-75) LYMPH % 16.7 L % (25-40) MONO % 5.0 % (3-14) EOSINOPHIL % 6.9 H % (0-4) BASOPHIL % 0.4 % (0-2) BNP: (LYRIC: 08/11/2016 22:00) ( [facility] 08/11/2016 22:28) Final results Test Result Flag Units (Reference) B-TYPE NATRIURETIC PEPTIDE 6.9 pg/ml (5-100) Amylase: (LYRIC: 08/11/2016 22:00) ( [facility] 08/11/2016 22:31) Final results Test Result Flag Units (Reference) AMYLASE 29 U/L (25-115) CHEM 13 PANEL: (LYRIC: 08/11/2016 22:00) ( [facility] 08/11/2016 22:30) Final results Test Result Flag Units (Reference) GLUCOSE 257 H mg/dL (70-110) BUN 23 H mg/dL (7-18) CREATININE 1.1 mg/dL (0.6-1.3) Estimated GFR >60 mL/min Estimated GFR- >60 mL/min Note: Persistent reduction over 3 months in eGFR<60 mL/min/1.73 m2 defines CKD. Patients with eGFR values>=60 mL/min/1.73 m2 may also have CKD if evidence ofpersistent proteinuria. Additional information may be foundat www.kidney.org. SODIUM 143 mmol/L (136-145) POTASSIUM 3.6 mmol/L (3.5-5.1) CHLORIDE 104 mmol/L (98-107) CARBON DIOXIDE 30 mmol/L (21-32) CALCIUM 9.1 mg/dL (8.5-10.1) TOTAL PROTEIN 7.8 g/dL (6.4-8.2) ALBUMIN 4.4 g/dL (3.3-5.0) BILIRUBIN, TOTAL 0.8 mg/dL (0.0-1.0) ALKALINE PHOSPHATASE 81 U/L (46-116) AST (SGOT) 21 U/L (15-37) ALT (SGPT) 39 U/L (12-78) MAGNESIUM 2.8 H mg/dL (1.8-2.4) CPK 234 U/L (24-260) TROPONIN I <0.05 ng/mL (0.00-1.5) TROPONIN REFERENCE RANGE:<0.1 NEGATIVE0.1-1.5 INDETERMINANT>1.5 POSITIVE ABG: (LYRIC: 08/11/2016 22:07) ( MsgRcvd 08/11/2016 22:11) Final results Test Result Flag Units (Reference) FIO2 100 % (20-101) ABG MODE OF DELIVERY CPAP MODIFIED LESLEY TEST POSITIVE? NO ARTERIAL BLOOD GAS PEEP 5 cmH2O ARTERIAL BLOOD GAS pH 7.32 L (7.35-7.45) ABG PCO2 51.1 H mmHg (35-45) ABG PO2 90.5 mmHg (80.0-100.0) ABG BASE EXCESS 0.1 H mmol/L (-6.0--6.0) ABG HCO3 26.5 H mmol/L (20.0-26.0) ABG TCO2 28.1 mmol/L (24.0-30.0) ABG VaYjT8c 570.4 H mmHg (7.0-14.0) *NOTE: Normal rangeis based on aFIO2 of 21% ABG SAT O2 97.6 % (95.1-100.0) ABG TOTAL HEMOGLOBIN 15.5 g/dL (14.0-18.0) ABG O2 HEMOGLOBIN 96.1 % (95.0-100.0) ABG CARBOXYHEMOGLOBIN 1.4 % (0.5-1.5) ABG METHEMOGLOBIN 0.1 L % (0.4-1.5) ABG RHEMOGLOBIN 2.4 % COMMENTS 100% EMT CPAP+5 . Pulse Oximetry: 08/11/2016 22:34 O2 saturation: 100%. PROGRESS AND PROCEDURES Course of Care: Continuous albuterol x 1 hour. 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 00:27 08/12/16. Bipap settings currently FiO2 60%; R 20; 18/8 00:30 08/12/16. Patient is stable. Physical exam findings are improved. Symptoms much better. Critical care performed (70 minutes). Time includes: direct patient care, patient reassessment, coordination of patient care, interpretation of data (laboratory data, pulse oximetry, arterial blood gases and chest xrays), review of patient's medical records, medical consultation and documentation of patient care. Procedures excluded from critical care time: electrocardiography. Discussed case with hospitalist, (Roman). Reviewed test results. Agreed upon treatment plan. Patient/family counseled. Old ED records reviewed. Transition orders written. Disposition: Admitted to the Critical Care Unit. Condition: guarded and improved. CLINICAL IMPRESSION Acute exacerbation of COPD (asthmatic). New onset, moderately well controlled type 2 diabetes with hyperglycemia. No coma. Moderate leukocytosis. No lymphocytosis. (Electronically signed by Red Cuba DO 08/12/2016 0:31)
--- NOTE | 2016-08-11 23:22 | ED ORDER SUMMARY ---
..... Patient: SHAKIRA RIVERA OrderSheet [facility] VisitID: [id number] [place] [address] 46y, M Registration Date/Time: 08/11/2016 ORDER SHEET Weight: 68.9 kg (measured) Allergies: NKDA GENERAL ORDERS: Chest 1V Urgent (21:58 08/11/2016 [facility] (Ack 22:01 AMcQuoid ER Tech1) (22:24 MCampbell) Hide Buyer (Continuous) (:58 [facility]2016 [facility] (Ack 22:01 AMcQuoid ER Tech1) (22:03 TBowen R.N.) UA-Culture if indicated Urgent (:08/11/2016 [facility] (Ack 22:01 AMcQuoid ER Tech1) (0:23 JRomanelli R.N.) Cardiac Panel Stat (:08/11/2016 [facility] (Ack 22:01 AMcQuoid ER Tech1) (22:18 JRomanelli R.N.) BNP Urgent (:59 [facility] (Ack 22:01 AMcQuoid ER Tech1) (22:18 JRomanelli R.N.) Amylase Urgent (:59 [facility]2016 [facility] (Ack 22:01 AMcQuoid ER Tech1) (22:18 JRomanelli R.N.) Oxygen (2 L/min) (NC) (:08/11/2016 [facility] (Ack 22:01 AMcQuoid ER Tech1) (22:03 TBowen R.N.) (Cancelled: Other22:39 JRomanelli R.N.) Pulse oximeter (:08/11/2016 [facility] (Ack 22:01 AMcQuoid ER Tech1) (22:03 TBowen R.N.) EKG - ER Stat (:08/11/2016 [facility] (Ack 22:01 AMcQuoid ER Tech1) (22:30 JRomanelli R.N.) Vitals (:59 08/11/2016 [facility]) (Ack 22:01 AMcQuoid ER Tech1) (22:39 JRomanelli R.N.) ABG (G) Urgent (22:07 08/11/2016 [facility]) (Ack 22:13 AMcQuoid ER Tech1) (22:18 JRomanelli R.N.) MEDICATION ORDERS: Albuterol Neb Tx continuous (NOW, HH[facility]) (21:59 08/11/2016 [facility]) (22:38 omanelli R.N.) IV FLUIDS: IV NS : initial bolus 1000 mL (1000 mL/hr), then 500 mL/hr for X2 (NOW) (21:58 08/11/2016 [facility]) (22:18 omanjohnathan R.N.) Zofran IV 4 mg (NOW) (21:58 08/11/2016 [facility]) (22:30 omanjohnathan R.N.) ORDER SHEET NOTES: [Electronically signed by Red Cuba DO (00:31 08/12/2016)] [Electronically signed by Ambrose Mcrae R.N. (01:05 08/12/2016)] [Electronically locked/signed by Ambrose Mcrae R.N. (01:08/12/2016)]
--- NOTE | 2016-08-11 23:22 | ED NURSING NOTES ---
Clinical Report - Nurses [facility] [address] [place] [address] 08/11/2016 21:49 Patient: SHAKIRA RIVERA TRIAGE Triage time 21:50 Aug 11 2016. Acuity: LEVEL 3. Chief Complaint: SHORTNESS OF BREATH, DIFFICULTY BREATHING and "ASTHMA ATTACK". Alert. SHARDA COMA SCORE: [place] Coma Scale: 15- eyes open spontaneously (4); best verbal response- oriented x 4 (5); best motor response- obeys commands (6). --22:08 Ambrose Mcrae R.N. 21:52 08/11/16. BP: 172/101. HR: 145. RR: 18. O2 saturation: 95%. Temp: 97.9 F (axillary). Pain level now deferred due to patient condition. --22:08 Ambrose Mcrae R.N. Weight: 68.9 kg measured. --22:03 Ambrose Mcrae R.N.. Height/Length: 66 inches Estimated. BMI: 24.5. --21:51 Ambrose Mcrae R.N. Medications Albuterol Sulfate Inhalation, PRN. Blood Pressure Pill. --21:56 Ambrose Mcrae R.N. Medication/allergy information source: the patient. --22:08 Ambrose Mcrae R.N. Allergies NKDA. --21:56 Ambrose Mcrae R.N. History <<STRICKEN ENTRY-- Arrived by EMS. Historian: EMS. Unaccompanied. Primary physician (Nilda). ( Astma Exacerbation. Presents on CPAP). This started today. ( Breath Sounds Diminished bilat). Treatment INTERACTIVE DESIGNER: (Epinephrine X 2 IM, Aktivan 1 mg IV, SoluMedrol 125mg IVP, continuous nebs, Magnesium 2 Gms IV.). PAST MEDICAL HX: Asthma. Chronic obstructive pulmonary disease. SOCIAL HX: Former smoker, end date 2015. No infectious disease exposure. ABUSE ASSESSMENT: No report of abuse. FALL RISK ASSESSMENT: Fall risk assessment completed. No fall risk identified. NUTRITIONAL RISK ASSESSMENT: The nutritional risk assessment revealed no deficiencies. FUNCTIONAL ASSESSMENT: Functional assessment: no impairments noted. LEARNING NEEDS ASSESSMENT: The learning needs assessment revealed no barriers. --22:08 Ambrose Mcrae R.N. --END STRIKE>> Correction --00:25 Ambrose Mcrae R.N. Arrived by EMS. Historian: EMS. Unaccompanied. Primary physician (Nilda). ( Astma Exacerbation. Presents on CPAP). This started today. ( Breath Sounds Diminished bilat). Treatment INTERACTIVE DESIGNER: (Epinephrine X 2 IM, Ativan 1 mg IV, SoluMedrol 125mg IVP, continuous nebs, Magnesium 2 Gms IV.). PAST MEDICAL HX: Asthma. Chronic obstructive pulmonary disease. SOCIAL HX: Former smoker, end date 2015. No infectious disease exposure. ABUSE ASSESSMENT: No report of abuse. FALL RISK ASSESSMENT: Fall risk assessment completed. No fall risk identified. NUTRITIONAL RISK ASSESSMENT: The nutritional risk assessment revealed no deficiencies. FUNCTIONAL ASSESSMENT: Functional assessment: no impairments noted. LEARNING NEEDS ASSESSMENT: The learning needs assessment revealed no barriers. --00:26 Ambrose Mcrae R.N. PROBLEMS: Hypertension. Cancer. Migraine Headache. --21:57 Ambrose Mcrae R.N. The following entry was modified by Ambrose Mcrae R.N., 00:25 Reason - Struck from template <<STRICKEN ENTRY-- COPD - Chronic Obstructive Pulmonary Disease. --00:25 Ambrose Mcrae R.N. --END STRIKE>>. ADDITIONAL SURGERIES: Hernia Repair. Testicular surgery . --21:57 Ambrose Mcrae R.N. Interventions ID band on patient. To treatment room. --22:08 Ambrose Mcrae R.N. PHYSICAL ASSESSMENT To room via stretcher. GENERAL / NEURO / PSYCH: Alert. Appears anxious. HEENT: Mucous membranes are pink. RESPIRATORY: Decreased breath sounds in the right lung base, mid-lung anteriorly and upper lung anteriorly; decreased breath sounds in the left lung base anteriorly, mid-lung anteriorly and upper lung anteriorly. CVS: Cardiac rhythm: sinus tachycardia. GI / : Abdomen soft. SKIN: Skin is cool and diaphoretic. Normal skin turgor. --22:11 Ambrose Mcrae R.N. NURSING PROGRESS NOTES Patient gowned. Reassurance given. Patient identifiers checked. Call light placed in reach. Side rails up x 2. Bed placed in lowest position. Brakes of bed on. Patient ready for evaluation- chart flagged and ED physician notified. --22:11 Ambrose Mcrae R.N. 22:03 08/11/2016 Site #1 started prior to arrival by EMS via IV in the right with an 20g angiocath, with aseptic technique and good blood return. Blood drawn: rainbow set. Labeled in the presence of the patient and sent to the lab (Field start IV by EMS--blood specimen drawn by RN in ED from this site.). --22:13 Ambrose Mcrae R.N. 22:13 08/11/2016 Started bag #1 1000 mL IV Fluids IV NS (Saline); at 1000 mL/hr over 60 minute(s) via site #1. Allergies verified and confirmed 5 rights. IV patency established. IV site checked: no pain, redness, or swelling. IV flushed thoroughly pre- and post-medication administration. --22:18 Ambrose Mcrae R.N. 22:08/11/2016 Zofran (Ondansetron HCl) IVP 4 mg given over 2 minute(s) via site #1. Allergies verified and confirmed 5 rights. IV patency established. IV site checked: no pain, redness, or swelling. IV flushed thoroughly pre- and post-medication administration. IVP given by RN. --22:30 Ambrose Mcrae R.N. EKG time: (:Aug 11 2016). EKG was performed by a tech and shown to the ED physician. --22:31 Ambrose Mcrae R.N. 22:10. Oxygen administered (CPAP on admit). athletic monitor, pulse oximeter and NIBP monitor placed on patient; clinical research monitor- Lead II and V1; monitor alarms on. Reassurance given to the patient. Patient identifiers checked. Call light placed in reach. Side rails up x 2. Bed placed in lowest position. Brakes of bed on. Patient ready for evaluation- chart flagged and ED physician notified. --22:32 Ambrose Mcrae R.N. 22:25 08/11/16. ( Placed on BIPAP by RT.). --22:33 Ambrose Mcrae R.N. 22:34 08/11/16. BP: 119/100. HR: 128. RR: 14. O2 saturation: 100%. Additional comments: pt on BIPAP. --22:35 Ambrose Mrcae R.N. 22:30 08/11/2016 Albuterol Neb TX 2 unit dose given. Given by the respiratory therapist. Allergies verified and confirmed 5 rights. --22:38 Ambrose Mcrae R.N. 22:40 08/11/2016 IV Fluids IV NS Bag Change: bag #1 infused. Total amount infused: 1000. STARTED bag #2 (1000 mL) at 500 mL/hr via IV pump. Confirmed 5 rights. IV patency established. IV site checked: no pain, redness, or swelling. IV flushed thoroughly. --22:50 Ambrose Mcrae R.N. 22:45 08/11/16. BP: 114/83. HR: 124. RR: 17. O2 saturation: 98% on room air. Pain level now: 0/10. --22:59 Ambrose Mcrae R.N. 23:34 08/11/16. BP: 122/89. HR: 117. RR: 15. O2 saturation: 100%. Pain level now: 0/10. Additional comments: pt on BIPAP. --23:36 Ambrose Mcrae R.N. 00:35 08/12/2016 Site #[address] upon admission; patent, no pain and no signs of infection or infiltration. Good blood return present (IV fluids infusing in site). --01:03 Ambrose Mcrae R.N. 01:35 08/12/2016 IV Fluids IV NS Continued: upon admission at the rate of 500 mL/hr. 200 mL remaining bag #2. IV patency established. IV site checked: no pain, redness, or swelling. IV flushed thoroughly. --01:01 Ambrose Mcrae R.N. DISPOSITION / DISCHARGE 00:30 08/12/16. BP: 117/78. HR: 103. RR: 15. O2 saturation: 99% on non-rebreather. Temp: 98.7 F (oral). Pain level now: 0/10. Additional comments: placed on NRBM @ 15 LPM by RT during transport. --00:55 Ambrose Mcrae R.N. Departure time: 0035. --00:56 Ambrose Mcrae R.N. 00:35. Admitted to the Critical Care Unit. Transported via stretcher by nurse and respiratory therapist with monitor, IV, O2 and ambu bag. Report was given to a nurse via a phone call. Report included patient's care, treatment, medications, reviewed medication reconcilliation, and condition (including any recent changes or anticipated changes). All questions were answered. Report was acknowledged and care was transferred. Patient's personal items; items were transported with the patient. --00:58 Ambrose Mcrae R.N. Locked/Released at 08/12/2016 1:05 by Ambrose Mcrae R.N.
--- NOTE | 2016-08-11 23:22 | ED NURSING NOTES ---
Clinical Report - Nurses [facility] [address] [place] [address] 08/11/2016 21:49 Patient: SHAIKRA RIVERA TRIAGE Triage time 21:50 Aug 11 2016. Acuity: LEVEL 3. Chief Complaint: SHORTNESS OF BREATH, DIFFICULTY BREATHING and "ASTHMA ATTACK". Alert. SHARDA COMA SCORE: [place] Coma Scale: 15- eyes open spontaneously (4); best verbal response- oriented x 4 (5); best motor response- obeys commands (6). --22:08 Ambrose Mcrae R.N. 21:52 08/11/16. BP: 172/101. HR: 145. RR: 18. O2 saturation: 95%. Temp: 97.9 F (axillary). Pain level now deferred due to patient condition. --22:08 Ambrose Mcrae R.N. Weight: 68.9 kg measured. --22:03 Ambrose Mcrae R.N.. Height/Length: 66 inches Estimated. BMI: 24.5. --21:51 Ambrose Mcrae R.N. Medications Albuterol Sulfate Inhalation, PRN. Blood Pressure Pill. --21:56 Ambrose Mcrae R.N. Medication/allergy information source: the patient. --22:08 Ambrose Mcrae R.N. Allergies NKDA. --21:56 Ambrose Mcrae R.N. History <<STRICKEN ENTRY-- Arrived by EMS. Historian: EMS. Unaccompanied. Primary physician (Nilda). ( Astma Exacerbation. Presents on CPAP). This started today. ( Breath Sounds Diminished bilat). Treatment BOTTLE LABEL INSPECTOR: (Epinephrine X 2 IM, Aktivan 1 mg IV, SoluMedrol 125mg IVP, continuous nebs, Magnesium 2 Gms IV.). PAST MEDICAL HX: Asthma. Chronic obstructive pulmonary disease. SOCIAL HX: Former smoker, end date 2015. No infectious disease exposure. ABUSE ASSESSMENT: No report of abuse. FALL RISK ASSESSMENT: Fall risk assessment completed. No fall risk identified. NUTRITIONAL RISK ASSESSMENT: The nutritional risk assessment revealed no deficiencies. FUNCTIONAL ASSESSMENT: Functional assessment: no impairments noted. LEARNING NEEDS ASSESSMENT: The learning needs assessment revealed no barriers. --22:08 Ambrose Mcrae R.N. --END STRIKE>> Correction --00:25 Ambrose Mcrae R.N. Arrived by EMS. Historian: EMS. Unaccompanied. Primary physician (Nilda). ( Astma Exacerbation. Presents on CPAP). This started today. ( Breath Sounds Diminished bilat). Treatment BOTTLE LABEL INSPECTOR: (Epinephrine X 2 IM, Ativan 1 mg IV, SoluMedrol 125mg IVP, continuous nebs, Magnesium 2 Gms IV.). PAST MEDICAL HX: Asthma. Chronic obstructive pulmonary disease. SOCIAL HX: Former smoker, end date 2015. No infectious disease exposure. ABUSE ASSESSMENT: No report of abuse. FALL RISK ASSESSMENT: Fall risk assessment completed. No fall risk identified. NUTRITIONAL RISK ASSESSMENT: The nutritional risk assessment revealed no deficiencies. FUNCTIONAL ASSESSMENT: Functional assessment: no impairments noted. LEARNING NEEDS ASSESSMENT: The learning needs assessment revealed no barriers. --00:26 Ambrose Mcrae R.N. PROBLEMS: Hypertension. Cancer. Migraine Headache. --21:57 Ambrose Mcrae R.N. The following entry was modified by Ambrose Mcrae R.N., 00:25 Reason - Struck from template <<STRICKEN ENTRY-- COPD - Chronic Obstructive Pulmonary Disease. --00:25 Ambrose Mcrae R.N. --END STRIKE>>. ADDITIONAL SURGERIES: Hernia Repair. Testicular surgery . --21:57 Ambrose Mcrae R.N. Interventions ID band on patient. To treatment room. --22:08 Ambrose Mcrae R.N. PHYSICAL ASSESSMENT To room via stretcher. GENERAL / NEURO / PSYCH: Alert. Appears anxious. HEENT: Mucous membranes are pink. RESPIRATORY: Decreased breath sounds in the right lung base, mid-lung anteriorly and upper lung anteriorly; decreased breath sounds in the left lung base anteriorly, mid-lung anteriorly and upper lung anteriorly. CVS: Cardiac rhythm: sinus tachycardia. GI / : Abdomen soft. SKIN: Skin is cool and diaphoretic. Normal skin turgor. --22:11 Ambrose Mcrae R.N. NURSING PROGRESS NOTES Patient gowned. Reassurance given. Patient identifiers checked. Call light placed in reach. Side rails up x 2. Bed placed in lowest position. Brakes of bed on. Patient ready for evaluation- chart flagged and ED physician notified. --22:11 Ambrose Mcrae R.N. 22:03 08/11/2016 Site #1 started prior to arrival by EMS via IV in the right with an 20g angiocath, with aseptic technique and good blood return. Blood drawn: rainbow set. Labeled in the presence of the patient and sent to the lab (Field start IV by EMS--blood specimen drawn by RN in ED from this site.). --22:13 Ambrose Mcrae R.N. 22:13 08/11/2016 Started bag #1 1000 mL IV Fluids IV NS (Saline); at 1000 mL/hr over 60 minute(s) via site #1. Allergies verified and confirmed 5 rights. IV patency established. IV site checked: no pain, redness, or swelling. IV flushed thoroughly pre- and post-medication administration. --22:18 Ambrose Mcrae R.N. 22:08/11/2016 Zofran (Ondansetron HCl) IVP 4 mg given over 2 minute(s) via site #1. Allergies verified and confirmed 5 rights. IV patency established. IV site checked: no pain, redness, or swelling. IV flushed thoroughly pre- and post-medication administration. IVP given by RN. --22:30 Ambrose Mcrae R.N. EKG time: (:Aug 11 2016). EKG was performed by a tech and shown to the ED physician. --22:31 Ambrose Mcrae R.N. 22:10. Oxygen administered (CPAP on admit). groundwater monitoring technician, pulse oximeter and NIBP monitor placed on patient; teletypesetter monitor- Lead II and V1; monitor alarms on. Reassurance given to the patient. Patient identifiers checked. Call light placed in reach. Side rails up x 2. Bed placed in lowest position. Brakes of bed on. Patient ready for evaluation- chart flagged and ED physician notified. --22:32 Ambrose Mcrae R.N. 22:25 08/11/16. ( Placed on BIPAP by RT.). --22:33 Ambrose Mcrae R.N. 22:34 08/11/16. BP: 119/100. HR: 128. RR: 14. O2 saturation: 100%. Additional comments: pt on BIPAP. --22:35 Ambrose Mcrae R.N. 22:30 08/11/2016 Albuterol Neb TX 2 unit dose given. Given by the respiratory therapist. Allergies verified and confirmed 5 rights. --22:38 Ambrose Mcrae R.N. 22:40 08/11/2016 IV Fluids IV NS Bag Change: bag #1 infused. Total amount infused: 1000. STARTED bag #2 (1000 mL) at 500 mL/hr via IV pump. Confirmed 5 rights. IV patency established. IV site checked: no pain, redness, or swelling. IV flushed thoroughly. --22:50 Ambrose Mcrae R.N. 22:45 08/11/16. BP: 114/83. HR: 124. RR: 17. O2 saturation: 98% on room air. Pain level now: 0/10. --22:59 Ambrose Mcrae R.N. 23:34 08/11/16. BP: 122/89. HR: 117. RR: 15. O2 saturation: 100%. Pain level now: 0/10. Additional comments: pt on BIPAP. --23:36 Ambrose Mcrae R.N. 00:35 08/12/2016 Site #[address] upon admission; patent, no pain and no signs of infection or infiltration. Good blood return present (IV fluids infusing in site). --01:03 Ambrose Mcrae R.N. 01:35 08/12/2016 IV Fluids IV NS Continued: upon admission at the rate of 500 mL/hr. 200 mL remaining bag #2. IV patency established. IV site checked: no pain, redness, or swelling. IV flushed thoroughly. --01:01 Ambrose Mcrae R.N. DISPOSITION / DISCHARGE 00:30 08/12/16. BP: 117/78. HR: 103. RR: 15. O2 saturation: 99% on non-rebreather. Temp: 98.7 F (oral). Pain level now: 0/10. Additional comments: placed on NRBM @ 15 LPM by RT during transport. --00:55 Ambrose Mcrae R.N. Departure time: 0035. --00:56 Ambrose Mcrae R.N. 00:35. Admitted to the Critical Care Unit. Transported via stretcher by nurse and respiratory therapist with monitor, IV, O2 and ambu bag. Report was given to a nurse via a phone call. Report included patient's care, treatment, medications, reviewed medication reconcilliation, and condition (including any recent changes or anticipated changes). All questions were answered. Report was acknowledged and care was transferred. Patient's personal items; items were transported with the patient. --00:58 Ambrose Mcrae R.N. Locked/Released at 08/12/2016 1:05 by Ambrose Mcrae R.N.
[2016-08-12] VITALS (12 sets, daily range): BP systolic 110–162; BP diastolic 65–97
--- NOTE | 2016-08-12 01:05 | ED DISCHARGE INSTRUCTIONS ---
Patient: SHAKIRA RIVERA General Instructions [facility] VisitID: [id number] [address] [place] [address] 46y, M Registration Date/Time: 08/11/2016 Acute exacerbation of COPD (asthmatic). New onset, moderately well controlled type 2 diabetes with hyperglycemia. No coma. Moderate leukocytosis. No lymphocytosis. (Electronically signed by Red Cuba DO 08/12/2016 0:31)
--- NOTE | 2016-08-12 01:05 | ED DISCHARGE INSTRUCTIONS ---
Patient: SHAKIRA RIVERA General Instructions [facility] VisitID: [id number] [address] [place] [address] 46y, M Registration Date/Time: 08/11/2016 Acute exacerbation of COPD (asthmatic). New onset, moderately well controlled type 2 diabetes with hyperglycemia. No coma. Moderate leukocytosis. No lymphocytosis. (Electronically signed by Red Cuba DO 08/12/2016 0:31)
--- NOTE | 2016-08-12 01:05 | ED MED RECONCILIATION SUMMARY ---
Patient: SHAKIRA RIVERA Medication Reconciliation Report [facility] VisitID: [id number] [address] [place] [address] 46y, M Registration Date/Time: 08/11/2016 Weight: 68.9 kg Height/Length: 66 in. BMI: 24.5 ALLERGIES: NKDA The patient's Home Medications are listed below: THE FOLLOWING MEDICATIONS NEED TO BE RECONCILED: Albuterol Sulfate Inhalation, PRN Blood Pressure Pill The source(s) of the original Home Medication information: patient The following Medications were given to the patient in the Emergency Department: IV NS IV Fluids bolus 0, then 1000 mL/hr, administered: 08/11/2016 10:13:00 PM Zofran [IVP] IVP 4 mg, administered: 08/11/2016 10:25:00 PM Albuterol [Neb Tx] Neb TX 2 unit dose, administered: 08/11/2016 10:30:00 PM The following Medications were prescribed to the patient: None.
--- NOTE | 2016-08-12 01:05 | ED MED RECONCILIATION SUMMARY ---
Patient: SHAKIRA RIVERA Medication Reconciliation Report [facility] VisitID: [id number] [address] [place] [address] 46y, M Registration Date/Time: 08/11/2016 Weight: 68.9 kg Height/Length: 66 in. BMI: 24.5 ALLERGIES: NKDA The patient's Home Medications are listed below: THE FOLLOWING MEDICATIONS NEED TO BE RECONCILED: Albuterol Sulfate Inhalation, PRN Blood Pressure Pill The source(s) of the original Home Medication information: patient The following Medications were given to the patient in the Emergency Department: IV NS IV Fluids bolus 0, then 1000 mL/hr, administered: 08/11/2016 10:13:00 PM Zofran [IVP] IVP 4 mg, administered: 08/11/2016 10:25:00 PM Albuterol [Neb Tx] Neb TX 2 unit dose, administered: 08/11/2016 10:30:00 PM The following Medications were prescribed to the patient: None.
--- NOTE | 2016-08-12 01:05 | ED MAR SUMMARY ---
..... Medication Administration Record [facility] [address] [place] [address] Patient: SHAKIRA RIVERA Visit ID: [id number] 46y, M Weight: 68.9 kg Height/Length: 66 in BMI: 24.5 ALLERGIES: NKDA Start 22:13 08/11/2016 Ambrose Mcrae R.N., Continued Upon Admission 01:35 08/12/2016 Ambrose Mcrae R.N. Medication Administered: IV NS (SALINE), Dose: IV Fluids over 60 minute(s), Rate: 1000 mL/hr, Dispensed: 1000 mL bag, Site: #1 right. Medication Ordered: IV NS : initial bolus 1000 mL (1000 mL/hr), then 500 mL/hr for X2 (NOW). Given 22:25 08/11/2016 Ambrose Mcrae R.N. Medication Administered: ZOFRAN [IVP] (ONDANSETRON HCL), Dose: 4 mg IVP over 2 minute(s), Site: #1 right. Medication Ordered: Zofran IV 4 mg (NOW). Given 22:30 08/11/2016 Ambrose Mcrae R.N. Medication Administered: ALBUTEROL [NEB TX], Dose: 2 unit dose Neb TX. Medication Ordered: Albuterol Neb Tx continuous (NOW, [facility]).
--- NOTE | 2016-08-12 01:05 | ED MAR SUMMARY ---
..... Medication Administration Record [facility] [address] [place] [address] Patient: SHAKIRA RIVERA Visit ID: [id number] 46y, M Weight: 68.9 kg Height/Length: 66 in BMI: 24.5 ALLERGIES: NKDA Start 22:13 08/11/2016 Ambrose Mcrae R.N., Continued Upon Admission 01:35 08/12/2016 Ambrose Mcrae R.N. Medication Administered: IV NS (SALINE), Dose: IV Fluids over 60 minute(s), Rate: 1000 mL/hr, Dispensed: 1000 mL bag, Site: #1 right. Medication Ordered: IV NS : initial bolus 1000 mL (1000 mL/hr), then 500 mL/hr for X2 (NOW). Given 22:25 08/11/2016 Ambrose Mcrae R.N. Medication Administered: ZOFRAN [IVP] (ONDANSETRON HCL), Dose: 4 mg IVP over 2 minute(s), Site: #1 right. Medication Ordered: Zofran IV 4 mg (NOW). Given 22:30 08/11/2016 Ambrose Mcrae R.N. Medication Administered: ALBUTEROL [NEB TX], Dose: 2 unit dose Neb TX. Medication Ordered: Albuterol Neb Tx continuous (NOW, [facility]).
--- NOTE | 2016-08-12 01:21 | History & Physical Report ---
Admission Admit Date 08/11/16 History Chief Complaint Shortness of Breath History of Present Illness Patient is a 46 year old male with a past medical history of Asthma, Essential Hypertension, and previous hx of Tobacco Use Disorder. He presents to the ER at [facility] complaining of a 2 day hx of progressively worse shortness of breath. Pt states he used his Albuterol inhaler several times today without any relief. Pt states he has had a cough which is producitive of clear sputum over the last day. He denies any recent fever, chills, nausea, vomiting, chest pain, palpitations, and dizziness. Pt states he had more and more difficulty breathing as the hours went by today, and felt he should come into the ER for further evaluation. Pt is unaware of what his triggers are for asthma. In the ER he was found to be hypoxemic on initial presentation with Acute Respiratory Failure. No other complaints or concerns at this time. Patient History 1. History of tobacco use 2. Essential hypertension 3. Asthma Social History Pt does have a previous hx of tobacco use disorder but has quit smoking a year ago. He denies any hx of drug and alcohol abuse. Family History Family history was reviewed; no changes noted. Medications and Allergies Medications Current Medications Sig/Riaz Start time Last Medication Dose Route Stop Time Status Admin Azithromycin 500 MG Q24HR 08/12 0900 UNV Sodium Chloride 250 ML IV 08/14 1000 Methylprednisolone 125 MG Q8HR 08/12 0600 UNV Sodium Succinate IV Albuterol Sulfate 2.5 MG RTQ3H 08/12 0200 UNV IN Albuterol/Ipratropium 3 ML RTQ6H 08/12 0200 UNV IN Lorazepam 0.5 MG Q4H PRN 08/12 0115 UNV IV Famotidine/Sodium 50 ML Q12HR 08/12 010 UNVr Chloride IV Acetaminophen 650 MG Q4H PRN 08/12 010 UNV PO Al Hydrox/Mg Hydrox/ 15 ML Q1H PRN 08/12 99 UNV Simethicone PO Atropine Sulfate 0.5 MG Q3MIN PRN 08/12 010 UNV IV Docusate Sodium 250 MG BID PRN 08/12 010 UNV PO Hydromorphone HCl 1 MG Q6H PRN 08/12 010 UNV IV Lidocaine HCl See Dose ONCE PRN 08/12 99 UNi Insts (1) IV Magnesium Hydroxide 10 ML DAILY PRN 08/12 99 UNV PO Morphine Sulfate 2 MG Q3M PRN 08/12 99 UNV IV Naloxone HCl 0.4 MG PRN PRN 08/12 99 UNV IV Nitroglycerin 0.4 MG Q5M PRN 08/12 99 UNV SL Ondansetron HCl 4 MG Q6H PRN 08/12 99 UNV IV Sodium Chloride 1,000 ML ASDIRECTED 08/12 99 UNV IV Acetaminophen 650 MG ONCE PRN 08/12 14 AC PO Ondansetron HCl 4 MG Q4H PRN 08/12 14 AC IV Sodium Chloride 1,000 ML ASDIRECTED 08/12 14 AC 08/12 IV 0053 1. Albuterol Inhaler 2. Antihypertensive Medication (name unknown) Allergies Coded Allergies: NKA (08/12/16) Review of Systems Other All systems reviewed and are negative except for what has already been mentioned in the HPI. Physical Exam Vital Signs / I&Os Vital Signs Date Time Temp Pulse Resp B/P Pulse O2 O2 Flow FiO2 Ox Delivery Rate 08/124 18 100 Bipap 50 08/12 0048 97.5 106 14 162/92 100 Bipap Other GENERAL: Pt appears to be in mild respiratory distress, sitting in bed with BiPAP on HEENT: AT/NC; PERRLA, EOMI; MM Moist CARDIAC: RRR, No M/R/G appreciated PULM: Diffuse wheezes throughout bilateral lungs, no crackles appreciated ABD: Soft, NT, ND, Positive BS in all quadrants; No hepatosplenomegaly appreciated EXT: No C/C/E in bilateral upper and lower extremity; No calve tenderness bilaterally SKIN: Warm, dry, pink, and intact NEURO: Alert and oriented x3; Following all commands PSYCH: Normal mood and affect LAB Results Laboratory Tests 08/12 2207 2200 2200 Blood Gas Total CO2 (24.0 - 30.0 mmol/L) 28.1 ABG pH (7.35 - 7.45) 7.32 ABG pCO2 at Pt Temp (35 - 45 mmHg) 51.1 ABG pO2 at Pt Temp (80.0 - 100.0 mmHg) 90.5 ABG HCO3 (20.0 - 26.0 mmol/L) 26.5 ABG O2 Sat Calc/Joce (95.1 - 100.0 %) 97.6 ABG Base Excess (-6.0 - -6.0 mmol/L) 0.1 ABG Reduced Hgb (%) 2.4 ABG Carboxyhemoglobin (0.5 - 1.5 %) 1.4 ABG Methemoglobin (0.4 - 1.5 %) 0.1 Walter Test NO Other Total Hgb (14.0 - 18.0 g/dL) 15.5 A-a O2 Gradient (7.0 - 14.0 mmHg) 570.4 Hgb O2 Saturation (95.0 - 100.0 %) 96.1 Vent Mode CPAP FiO2 (20 - 101 %) 100 PEEP (cmH2O) 5 Blood Gas Comments 100% EMT CPAP+5 Chemistry B-Natriuretic Peptide (5 - 100 pg/ml) 6.9 Amylase (25 - 115 U/L) 29 Toxicology Urine Opiates Screen Pending Urine Methadone Screen Pending Ur Barbiturates Screen Pending U Amphetamin/Meth Scrn Pending MDMA (Ecstasy) Screen Pending U Benzodiazepines Scrn Pending Urine Cocaine Screen Pending U Cannabinoids Screen Pending 08/11 2200 Chemistry Plasma Sodium (136 - 145 mmol/L) 143 Plasma Potassium (3.5 - 5.1 mmol/L) 3.6 Plasma Chloride (98 - 107 mmol/L) 104 CO2 (Enzymatic) (21 - 32 mmol/L) 30 BUN (7 - 18 mg/dL) 23 Creatinine (0.6 - 1.3 mg/dL) 1.1 Est GFR ( Amer) (mL/min) >60 Est GFR (Non-Af Amer) (mL/min) >60 Glucose (70 - 110 mg/dL) 257 Plasma Calcium (8.5 - 10.1 mg/dL) 9.1 Plasma Magnesium (1.8 - 2.4 mg/dL) 2.8 Total Bilirubin (0.0 - 1.0 mg/dL) 0.8 AST (15 - 37 U/L) 21 ALT (12 - 78 U/L) 39 Alkaline Phosphatase (46 - 116 U/L) 81 Creatine Kinase (24 - 260 U/L) 234 Troponin (0.00 - 1.5 ng/mL) <0.05 Total Protein (6.4 - 8.2 g/dL) 7.8 Albumin (3.3 - 5.0 g/dL) 4.4 Hematology WBC (4.5 - 11.5 K/uL) 22.1 RBC (4.50 - 5.90 M/uL) 4.93 Hgb (13.5 - 17.5 gm/dL) 16.0 Hct (41.0 - 53.0 %) 47.0 MCV (80 - 100 fL) 95 MCH (26 - 34 pg) 32 RDW (11.6 - 14.8 %) 12.7 Neut % (Auto) (50 - 75 %) 71.0 Lymph % (Auto) (25 - 40 %) 16.7 Norman % (Auto) (3 - 14 %) 5.0 Eos % (Auto) (0 - 4 %) 6.9 Baso % (Auto) (0 - 2 %) 0.4 Plt Count, EDTA (150 - 400 K/uL) 311 PUBS MCHC (31 - 37 g/dL) 34 Imaging Chest x-ray shows no acute process. Assessment and Plan Problem List 1. Acute hypoxemic respiratory failure Plan - Secondary to #2 - Continue pt on BiPAP at present settings - Recheck STAT ABG now - Continue supplemental O2 through BiPAP to keep SpO2 greater than 92% - Continue Albuterol and Duo-Neb breathing treatment, as mentioned below 2. Asthma exacerbation Plan - Trigger unknown - Abuterol nebs q 3 hours and Duo-Nebs q 6 hours scheduled for now - Solu-Medrol 125 mg q 8 hours for now, this can be de-escalated by dayteam in AM - Azithromycin 500 mg IV daily for 3 days - Given pts significant leukocytosis will order a Procalcitonin and CRP now - See #1 - Continue BiPAP treatment for now 3. Essential hypertension Plan - Pt is unsure of which BP medication he is on currently - Monitor BP closely - Dayteam to restart home meds once medication reconcilation is complete 45 minutes critical care time spent managing patients Acute Respiratory Failure as Asthma Exacerbation.
[2016-08-12] MEDS ORDERED: ALBUTEROL2.5 MG/3 M IN ×2 (13:02→15:51)
[2016-08-12] MEDS ORDERED: QVAR40 MCG IN ×2 (13:03→15:50)
[2016-08-12] MEDS ORDERED: ALBUTEROL HFA60 DOSE IN (15:48)
[2016-08-12] MEDS ORDERED: MEDROL DOSEPAK4 MG PO (15:50)
--- NOTE | 2016-08-12 15:53 | Provider's Discharge Care Plan ---
Problem, Goal, Plan Problem List 1. Asthma Instructions: Stop smoking, - dont use any illicit substances - take medications as prescribed 2. Asthma exacerbation Instructions: - avoid any illicit substances
--- NOTE | 2016-08-12 16:22 | Discharge Summary ---
Discharge Summary Report Admit Date 08/11/16 Discharge Date 08/12/16 Admission Diagnosis asthma exacerbation Discharge Diagnosis asthma exacerbation Brief History please refer to H&P for history of present illness Hospital Course Patient was admitted and seen to have acute shortness of breath stemming from bronchoconstriction. Patient given his degree of obstruction was seen close to intubation. Patient was maintained on bipap and given a high dose of methylprednisone. Patients breathing improved throughout the night and patient continued to do well. Patient in the am was seen to not have any accessory muscle use and no pathological breath sounds. Patient additionally was seen to be exceedingly restless and very agitated. Patient was found to be positive for methampethamines and opiates. Upon questioning patient admitted to smoking methamphetamines before symptoms started. Patient admits to the amphetamines as to the reason behind the asthma attack. Patients overall breathing status improved immensely, patient did not have any other pathological signs that would point to any other findings that would cause this. Patient will be discharged given the lack of symptoms and resolution of his initial problem. Patient will be discharged to home. He will take a tapering dose of steroids and follow up with pcp. Patient was advised to avoid methampetamines in the future. General Appearance Alert, Oriented X3, No acute distress HEENT Atraumatic, PERRLA, Mucous membran moist/pink Lungs Clear to auscultation, Normal air movement Cardiovascular Normal S1, Normal S2, Gallops, Rubs Abdomen Soft, No tenderness Skin No Rashes Neurological Normal speech, Normal tone, Sensation intact Discharge Instructions/Meds - take medications as prescribed - follow up with your primary care provider
== END 2016-08-12 16:28 | disposition home or self-care (01) | DRG 917 ==
LOC: ED SRH 21:50 → CC SRH 23:31 → TRANS SRH 23:31 → CC SRH 08-12 00:59
PROVIDERS: ADMIT Family Medicine
PROC: 5A09357 Assistance with Respiratory Ventilation, Less than 24 Consecutive Hours, Continuous Positive Airway Pressure (ICD-10-PCS; principal; 2016-08-11)
DX: T43.621A Poisoning by amphetamines, accidental (unintentional), initial encounter (principal); J68.3 Other acute and subacute respiratory conditions due to chemicals, gases, fumes and vapors; J45.901 Unspecified asthma with (acute) exacerbation; J44.1 Chronic obstructive pulmonary disease with (acute) exacerbation; J96.01 Acute respiratory failure with hypoxia; I10 Essential (primary) hypertension; Z87.891 Personal history of nicotine dependence